=== PATIENT | female | born 1940 | race Caucasian/White ===

== ENCOUNTER 2018-01-10 16:28 | Observation (INO) | payer OTHER ==
[2018-01-10] MEDS ORDERED: AMIODARONE HCL 150 MG/3 ML VIAL ONE ×2 (16:36→16:40)
[2018-01-10] MEDS ORDERED: AMIODARONE HCL 100 ML IV ONE ×2 (16:42)
[2018-01-10] MEDS ORDERED: fentaNYL 100 MCG/2 ML INJ ONE (16:42)
[2018-01-10] MEDS ORDERED: IOPAMIDOL (ISOVUE-370) 150 ML BTL IV ONE (16:42)
[2018-01-10] MEDS ORDERED: MIDAZOLAM 2 MG/2 ML VIAL ONE (16:42)
[2018-01-10] MEDS ORDERED: LIDOCAINE 1% 300 MG/30 ML SDV ONE (16:42)
[2018-01-10] MEDS ORDERED: AMIODARONE HCL 150 MG/3 ML VIAL IV ONE ×2 (16:44→16:48)
[2018-01-10] MEDS ORDERED: MAGNESIUM SULF 2 GM/WATER 50 ML BAG IV ONE (16:46)
[2018-01-10] MEDS ORDERED: MAGNESIUM SULF 2 GM/WATER 50 ML IV ONE (16:51)
--- NOTE | 2018-01-10 16:55 | EDPHY ---
H & P Stated Complaint: cp esophagea; pain/lightheaded Time Seen by Provider: 01/10/18 16:47 HPI/ROS: CHIEF COMPLAINT: Chest pain and lightheadedness HISTORY OF PRESENT ILLNESS: Patient is a 77-year-old female who comes to the emergency department complaining of lightheadedness. She has had the symptoms off and on for the last couple of months. Today she had a Holter monitor placed by her primary. When she got home she began having more frequent episodes of lightheadedness. Her states that this has happened 5 times today. She also began to have mild chest pain. He brought her here to the ER and when she was hooked up on the monitor she was in a stable V-tach. Her blood pressure at triage was low but in the room with several measurements that is been about 130/80. She is mentating well, laughing and joking. No shortness of breath. No diaphoresis. No nausea vomiting. She reports having a cardiac catheterization 4 years ago for similar complaints and at that time was told her coronary arteries were clean. Severity: Severe Modifying factors: None REVIEW OF SYSTEMS: Constitutional: denies: chills, fever, recent illness, recent injury EENTM: denies: blurred vision, double vision, nose congestion Respiratory: denies: cough, shortness of breath Cardiac: See HPI Gastrointestinal/Abdominal: denies: abdominal pain, diarrhea, nausea, vomiting, blood streaked stools Genitourinary: denies: dysuria, frequency, hematuria, pain Musculoskeletal: denies: joint pain, muscle pain Skin: denies: lesions, rash, jaundice, bruising Neurological: denies: headache, numbness, paresthesia, tingling, dizziness, weakness Hematologic/Lymphatic: denies: blood clots, easy bleeding, easy bruising Immunologic/allergic: denies: HIV/AIDS, transplant 10 systems reviewed and negative except as noted EXAM: GENERAL: Slightly pale, mentating, lying flat HEAD: Atraumatic, normocephalic. EYES: Pupils equal round and reactive to light, extraocular movements intact, sclera anicteric, conjunctiva are normal. ENT: TMs normal, nares patent, oropharynx clear without exudates. Moist mucous membranes. NECK: Normal range of motion, supple without lymphadenopathy or JVD. LUNGS: Breath sounds clear to auscultation bilaterally and equal. No wheezes rales or rhonchi. HEART: Tachycardic, irregular ABDOMEN: Soft, nontender, normoactive bowel sounds. No guarding, no rebound. No masses appreciated. BACK: No CVA tenderness, no spinal tenderness, step-offs or deformities EXTREMITIES: Normal range of motion, no pitting or edema. No clubbing or cyanosis. NEUROLOGICAL: Cranial nerves II through XII grossly intact. Normal speech, normal gait. 5/5 strength, normal movement in all extremities, normal sensation , normal reflexes PSYCH: Normal mood, normal affect. SKIN: Warm, dry, normal turgor, no visible rashes or lesions. Source: Patient Exam Limitations: No limitations - Personal History Current Tetanus Diphtheria and Acellular Pertussis (TDAP): Yes - Medical/Surgical History Hx Asthma: No Hx Chronic Respiratory Disease: No Hx Diabetes: No Hx Cardiac Disease: Yes Hx Renal Disease: No Hx Cirrhosis: No Hx Alcoholism: No Hx HIV/AIDS: No Hx Splenectomy or Spleen Trauma: No Other PMH: SD - Social History Smoking Status: Never smoked Constitutional: Initial Vital Signs Temperature (C) 37 C 01/10/18 16:35 Heart Rate 124 H 01/10/18 16:35 Respiratory Rate 20 01/10/18 16:35 Blood Pressure 84/60 L 01/10/18 16:35 O2 Sat (%) 93 01/10/18 16:35 O2 Delivery Mode Nasal Cannula O2 (L/minute) 2 Allergies/Adverse Reactions: No Known Allergies Allergy (Unverified 01/10/18 16:35) Home Medications: Medication Instructions Recorded Metoprolol Succinate 01/10/18 Medical Decision Making - Diagnostics EKG Interpretation: An EKG obtained and was read and documented in trace view. Please see trace view for full reading and report. V-tach A EKG obtained and was read and documented in trace view. Please see trace view for full reading and report. Atrial fibrillation Imaging Results: Imaging Impressions Chest X-Ray 01/10/18 17:07 Impression: 1. Borderline cardiomegaly. ED Course/Re-evaluation: A cardiac alert was called. Patient was given [address] Fonseca arrived very quickly and Dr. Velázquez and Dr. Vargas as well. Patient was then given magnesium. As the magnesium was infusing she seemed to convert to primarily atrial fibrillation. No ST elevation changes at this time. 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 5:05 p.m. the patient has essentially stayed in a stable atrial fibrillation rhythm with occasional aberrancy. We will keep her on the amiodarone drip and plan for JACKY and cardioversion tomorrow with Dr. Velázquez. They are requesting admission the hospital service. Differential Diagnosis: Partial list of the Differential diagnosis considered include but were not limited to; stable V-tach, atrial fibrillation, AFib with aberrancy V-fib, acute coronary disease and although unlikely based on the history and physical exam, I also considered intracranial hemorrhage, infection. - Data Points Laboratory Results: Laboratory Results 01/10/18 16:40 01/10/18 16:40 01/10/18 01/10/18 01/10/18 16:42 16:40 16:40 WBC RBC Hgb POC Hgb 14.3 gm/dL gm/dL (12.6-16.3) Hct POC Hct 42 % % (38-47) MCV MCH MCHC RDW Plt Count MPV Neut % (Auto) Lymph % (Auto) [place] % (Auto) Eos % (Auto) Baso % (Auto) Nucleat RBC Rel Count Absolute Neuts (auto) Absolute Lymphs (auto) Absolute Monos (auto) Absolute Eos (auto) Absolute Basos (auto) Absolute Nucleated RBC Immature Gran % Immature Gran # PT 13.5 SEC SEC (12.0-15.0) INR 1.01 (0.83-1.16) APTT 27.2 SEC SEC (23.0-38.0) POC Sodium 144 mEq/L mEq/L (135-145) Sodium POC Potassium 3.8 mEq/L mEq/L (3.3-5.0) Potassium POC Chloride 108 mEq/L mEq/L (97-110) Chloride Carbon Dioxide Anion Gap POC BUN 21 mg/dL mg/dL (7-23) BUN Creatinine POC Creatinine 0.9 mg/dL mg/dL (0.6-1.0) Estimated GFR Glucose POC Glucose 147 mg/dL H mg/dL (70-100) Calcium Creatine Kinase 71 IU/L IU/L (0-156) CK-MB (CK-2) Fraction Pending POC Troponin I 0901/10/18 01/10/18 16:40 16:40 16:40 WBC 8.70 10^3/uL 10^3/uL (3.80-9.50) RBC 4.76 10^6/uL 10^6/uL (4.18-5.33) Hgb 14.3 g/dL g/dL (12.6-16.3) POC Hgb Hct 42.9 % % (38.0-47.0) POC Hct MCV 90.1 fL fL (81.5-99.8) MCH 30.0 pg pg (27.9-34.1) MCHC 33.3 g/dL g/dL (32.4-36.7) RDW 13.2 % % (11.5-15.2) Plt Count 264 10^3/uL 10^3/uL (150-400) MPV 10.2 fL fL (8.7-11.7) Neut % (Auto) 51.4 % % (39.3-74.2) Lymph % (Auto) 36.2 % % (15.0-45.0) [place] % (Auto) 9.9 % % (4.5-13.0) Eos % (Auto) 1.7 % % (0.6-7.6) Baso % (Auto) 0.6 % % (0.3-1.7) Nucleat RBC Rel Count 0.0 % % (0.0-0.2) Absolute Neuts (auto) 4.47 10^3/uL 10^3/uL (1.70-6.50) Absolute Lymphs (auto) 3.15 10^3/uL H 10^3/uL (1.00-3.00) Absolute Monos (auto) 0.86 10^3/uL H 10^3/uL (0.30-0.80) Absolute Eos (auto) 0.15 10^3/uL 10^3/uL (0.03-0.40) Absolute Basos (auto) 0.05 10^3/uL 10^3/uL (0.02-0.10) Absolute Nucleated RBC 0.00 10^3/uL 10^3/uL (0-0.01) Immature Gran % 0.2 % % (0.0-1.1) Immature Gran # 0.02 10^3/uL 10^3/uL (0.00-0.10) PT INR APTT POC Sodium Sodium 140 mEq/L mEq/L (135-145) POC Potassium Potassium 4.0 mEq/L mEq/L (3.3-5.0) POC Chloride Chloride 108 mEq/L mEq/L (97-110) Carbon Dioxide 20 mEq/l L mEq/l (22-31) Anion Gap 12 mEq/L mEq/L (8-16) POC BUN BUN 21 mg/dL mg/dL (7-23) Creatinine 0.9 mg/dL mg/dL (0.6-1.0) POC Creatinine Estimated GFR 60 Glucose 144 mg/dL H mg/dL (70-100) POC Glucose Calcium 10.1 mg/dL mg/dL (8.5-10.4) Creatine Kinase CK-MB (CK-2) Fraction POC Troponin I 0.01 ng/mL ng/mL (0.00-0.08) Medications Given: Amiodarone HCl (Amiodarone Hcl) 200 mls @ 33.333 mls/hr IV ONCE ONE PRN Reason: Protocol Stop: 01/10/18 22:59 Last Admin: 01/10/18 16:50 Dose: 200 mls Discontinued Medications Amiodarone HCl (Amiodarone Hcl) 150 mg IV EDNOW ONE Stop: 01/10/18 16:45 Last Admin: 01/10/18 16:49 Dose: 150 mg Amiodarone HCl (Amiodarone Hcl) 150 mg IV EDNOW ONE Stop: 01/10/18 16:49 Last Admin: 01/10/18 16:49 Dose: 150 mg Amiodarone HCl (Amiodarone Hcl) 100 mls @ 600 mls/hr IV ONCE ONE Stop: 01/10/18 16:51 Last Admin: 01/10/18 17:07 Dose: Not Given Amiodarone HCl (Amiodarone Hcl) 100 mls @ 600 mls/hr IV ONCE ONE Stop: 01/10/18 16:51 Last Admin: 01/10/18 17:08 Dose: 100 mls Magnesium Sulfate (Magnesium Sulf 2 Gm (Premix)) 50 mls @ 50 mls/hr IV EDNOW ONE Stop: 01/10/18 17:50 Last Admin: 01/10/18 16:52 Dose: 50 mls Point of Care Test Results: Chemistry 01/10/18 01/10/18 16:42 16:40 POC Sodium 144 mEq/L mEq/L (135-145) POC Potassium 3.8 mEq/L mEq/L (3.3-5.0) POC Chloride 108 mEq/L mEq/L (97-110) POC BUN 21 mg/dL mg/dL (7-23) POC Creatinine 0.9 mg/dL mg/dL (0.6-1.0) POC Glucose 147 mg/dL H mg/dL (70-100) POC Troponin I 0.01 ng/mL ng/mL (0.00-0.08) ISTAT H&H 01/10/18 16:42 POC Hgb 14.3 gm/dL gm/dL (12.6-16.3) POC Hct 42 % % (38-47) Departure - [facility] Clinical Impression: Atrial fibrillation with aberrancy Condition: Fair
[2018-01-10 16:58] LABS: PLATELET COUNT 264 10^3/uL (150-400)
[2018-01-10] MEDS ORDERED: AMIODARONE A.FIB-6HR INFSN (ORDER 2/3) PREMIX IV ONE (17:00)
[2018-01-10 17:48] LABS: INR 1.01 (0.83-1.16); PROTIME(PATIENT) 13.5 SEC (12.0-15.0)
[2018-01-10 17:51] LABS: CREATINE KINASE 71 IU/L (0-156)
[2018-01-10] MEDS ORDERED: ENOXAPARIN 80 MG/0.8 ML SYR SC SCH (18:00)
[2018-01-10] MEDS: ENOXAPARIN 80 MG/0.8 ML SYR SC SCH (18:17)
--- NOTE | 2018-01-10 18:43 | CPEKG ---
Test Reason : OPEN Blood Pressure : / mmHG Vent. Rate : 130 BPM Atrial Rate : 140 BPM P-R Int : 136 ms QRS Dur : 107 ms QT Int : 312 ms P-R-T Axes : 000 -61 062 degrees QTc Int : 459 ms Atrial fibrillation Paired ventricular premature complexes Left anterior fascicular block Confirmed by Herman Morillo ([id number]) on 01/10/2018 6:43:19 PM Referred By: Confirmed By:Herman Morillo
--- NOTE | 2018-01-10 18:43 | CPEKG ---
Test Reason : OPEN Blood Pressure : / mmHG Vent. Rate : 241 BPM Atrial Rate : 242 BPM P-R Int : 096 ms QRS Dur : 135 ms QT Int : 251 ms P-R-T Axes : 110 -71 118 degrees QTc Int : 503 ms Wide-QRS tachycardia Left bundle branch block Confirmed by Herman Morillo ([id number]) on 01/10/2018 6:43:03 PM Referred By: Confirmed By:Herman Morillo
--- NOTE | 2018-01-10 18:43 | CPEKG ---
Test Reason : OPEN Blood Pressure : / mmHG Vent. Rate : 089 BPM Atrial Rate : 089 BPM P-R Int : 155 ms QRS Dur : 123 ms QT Int : 402 ms P-R-T Axes : 065 -61 073 degrees QTc Int : 490 ms Sinus rhythm Nonspecific IVCD with LAD Probable anterolateral infarct, old Confirmed by Herman Morillo ([id number]) on 01/10/2018 6:43:24 PM Referred By: Confirmed By:Herman Morillo
--- NOTE | 2018-01-10 18:43 | CPEKG ---
Test Reason : OPEN Blood Pressure : / mmHG Vent. Rate : 107 BPM Atrial Rate : 000 BPM P-R Int : 160 ms QRS Dur : 113 ms QT Int : 382 ms P-R-T Axes : 000 -55 042 degrees QTc Int : 510 ms Atrial fibrillation Left anterior fascicular block Low voltage, extremity leads Prolonged QT interval Confirmed by Herman Morillo ([id number]) on 01/10/2018 6:43:14 PM Referred By: Confirmed By:Herman Morillo
--- NOTE | 2018-01-10 19:16 | GHP ---
DATE OF ADMISSION: 01/10/2018 CHIEF COMPLAINT: Lightheadedness and feeling like she was going to pass out. HISTORY OF PRESENT ILLNESS: This is a 77-year-old female with history of coronary artery disease, wh o was seen at [facility] on Tuesday, and started on a heart monitor after she had bouts of lightheadedness , and palpitations over the weekend. Today, the patient got home from shopping where she became extremely lightheaded, and developed pain in her throat. She also recalls having some palpitations. Upon arrival to the ED, she was found to be tachycardic with a ventricular rate of 241, which appeared to be ventricular tachycardia. The pat [place] was subsequently seen by Cardiology, who started her on amiodarone, at which time she converted to atrial fibrillation. During the time of my exam, the patient denies any chest pain or shortness of breath. She is now in normal sinus rhythm, and states that she feels much better. PAST MEDICAL HISTORY: Coronary artery disease, status post coronary catheterization 4 years ago. PAST SURGICAL HISTORY: 1. Basal cell excision of the nose. 2. Tonsillectomy. 3. Hysterectomy. HOME MEDICATIONS: Reviewed. Refer to [email or web address] for details. ALLERGIES: No known drug allergies. SOCIAL HISTORY: She is . She denies any tobacco or illicit drug use. She drinks 1 to 2 glas ses of wine per night. FAMILY HISTORY: Significant for heart disease in her mother and grandmother. REVIEW OF SYSTEMS: Comprehensive 10-point review of systems was done, and is negative except for as mentioned in the HPI. PHYSICAL EXAM: VITAL SIGNS: Blood pressure 117/60, pulse of 83, respiratory rate 24, O2 saturation 92% on room air. Temperature afebrile. GENERAL: No acute distress. HEAD: Normocephalic, atraumat ic. Eyes are PERRLA. Sclerae anicteric. Mouth: Moist mucous membranes. NECK: Supple. No lympha denopathy. CARDIOVASCULAR: S1, S2. No murmurs, rubs, clicks, gallops. No JVD. No lower extremity edema. PULMONARY: Lungs are clear. No wheezes, rales, or rhonchi. ABDOMEN: Soft, nontender, nondistended . No guarding or rebound tenderness. Normoactive bowel sounds. EXTREMITIES: No clubbing or cyanos is. NEURO: Cranial nerves 2 through 12 grossly intact. No focal motor or sensory deficits. SKIN: Clear without rashes. DIAGNOSTICS: EKG on initial presentation, done at 4:37 p.m. was reviewed: Wide-complex tachycardia, rate 241 beats per minute. EKG done at 5:16 p.m. was reviewed: Showing sinus rhythm, 89 beats per minute. No acute ischemic changes. Chest x-ray, which I visualized and personally interpreted, show s mild cardiomegaly with mild pulmonary vascular prominence. WBC is 8.7, hemoglobin 14.3, hematocrit 42.9, platelets 264. Initial troponin was negative. Sodium 140, potassium 4, chloride 108, CO2 20, BUN 21, creatinine 0.9, glucose 144. ASSESSMENT/PLAN: This is a 77-year-old female with known coronary disease, per patient report, who p resented with: 1. Wide-complex tachycardia, status post 2 doses of amiodarone, and now on amiodarone drip. 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 Low molecular weight heparin will be continued. I will place her n.p.o. overnight in case she requires a JACKY and cardioversion tomorrow. Will check a TSH and magnesium level. Will also repeat a troponin given her throat pain, in the setting of known coronary disease. The patient requests to be full code status. /[id number]/MODL
--- NOTE | 2018-01-10 20:59 | PDCARCONS ---
Cardiology Consult Reason for Consult: Wide complex tachycardia Chief Complaint: Palpitations, dizziness, throat pain Requesting Physician: Dr. Morillo, Dr. Fonseca History of Present Illness: Came to ED with sx of presyncope. WCT noted, initially cardiac alert called. Dr. Fonseca briefly saw patient and called me to consult given WCT. Reviewed ECG, patient HD stable and without pain despite HR 240 bpm. Given IV amiodarone, rhythm initially stabilized to narrow complex rhythm, irregular c.w. atrial fibrillation, later to 2:1 AFL and then to sinus rhythm. ECG in AFIB and sinus rhythm without STT changes History Information - Allergies/Home Medication List Allergies/Adverse Reactions: No Known Allergies Allergy (Verified 01/10/18 18:15) Home Medications: Atorvastatin Calcium [Lipitor 40 mg (*)] 40 mg PO HS 01/10/18 [Last Taken ] Citalopram Hydrobromide [celeXA 10 MG] 10 mg PO HS 01/10/18 [Last Taken 01/09/18 ] Metoprolol Succinate Xr [Toprol Xl 25 mg (*)] 25 mg PO HS 01/10/18 [Last Taken 01/09/18] Ranitidine HCl 300 mg PO HS 01/10/18 [Last Taken 01/09/18] Past Medical History: - Social History Smoking Status: Never smoked Physical Exam Physical Exam: Temp Pulse Resp BP Pulse Ox 36.8 C 83 24 H 117/60 92 01/10/18 17:57 01/10/18 18:22 01/10/18 18:22 01/10/18 18:22 01/10/18 18:22 Constitutional: no apparent distress, appears nourished, not in pain Eyes: PERRL, EOMI Ears, Nose, Mouth, Throat: moist mucous membranes, hearing normal Cardiovascular: regular rate and rhythym, systolic murmur Respiratory: no respiratory distress, no rales or rhonchi Gastrointestinal: normoactive bowel sounds, soft, non-tender abdomen Genitourinary: no bladder fullness Skin: warm, normal color Neurologic: AAOx3 Psychiatric: interacting appropriately, not anxious, not encephalopathic, thought process linear Lab and Imaging 01/10/18 16:40 01/10/18 16:40 WBC 8.70 10^3/uL (3.80-9.50) 01/10/18 16:40 RBC 4.76 10^6/uL (4.18-5.33) 01/10/18 16:40 Hgb 14.3 g/dL (12.6-16.3) 01/10/18 16:40 POC Hgb 14.3 gm/dL (12.6-16.3) 01/10/18 16:42 Hct 42.9 % (38.0-47.0) 01/10/18 16:40 POC Hct 42 % (38-47) 01/10/18 16:42 MCV 90.1 fL (81.5-99.8) 01/10/18 16:40 MCH 30.0 pg (27.9-34.1) 01/10/18 16:40 MCHC 33.3 g/dL (32.4-36.7) 01/10/18 16:40 RDW 13.2 % (11.5-15.2) 01/10/18 16:40 Plt Count 264 10^3/uL (150-400) 01/10/18 16:40 MPV 10.2 fL (8.7-11.7) 01/10/18 16:40 Neut % (Auto) 51.4 % (39.3-74.2) 01/10/18 16:40 Lymph % (Auto) 36.2 % (15.0-45.0) 01/10/18 16:40 [place] % (Auto) 9.9 % (4.5-13.0) 01/10/18 16:40 Eos % (Auto) 1.7 % (0.6-7.6) 01/10/18 16:40 Baso % (Auto) 0.6 % (0.3-1.7) 01/10/18 16:40 Nucleat RBC Rel Count 0.0 % (0.0-0.2) 01/10/18 16:40 Absolute Neuts (auto) 4.47 10^3/uL (1.70-6.50) 01/10/18 16:40 Absolute Lymphs (auto) 3.15 10^3/uL (1.00-3.00) H 01/10/18 16:40 Absolute Monos (auto) 0.86 10^3/uL (0.30-0.80) H 01/10/18 16:40 Absolute Eos (auto) 0.15 10^3/uL (0.03-0.40) 01/10/18 16:40 Absolute Basos (auto) 0.05 10^3/uL (0.02-0.10) 01/10/18 16:40 Absolute Nucleated RBC 0.00 10^3/uL (0-0.01) 01/10/18 16:40 Immature Gran % 0.2 % (0.0-1.1) 01/10/18 16:40 Immature Gran # 0.02 10^3/uL (0.00-0.10) 01/10/18 16:40 PT 13.5 SEC (12.0-15.0) 01/10/18 16:40 INR 1.01 (0.83-1.16) 01/10/18 16:40 APTT 27.2 SEC (23.0-38.0) 01/10/18 16:40 POC Sodium 144 mEq/L (135-145) 01/10/18 16:42 Sodium 140 mEq/L (135-145) 01/10/18 16:40 POC Potassium 3.8 mEq/L (3.3-5.0) 01/10/18 16:42 Potassium 4.0 mEq/L (3.3-5.0) 01/10/18 16:40 POC Chloride 108 mEq/L (97-110) 01/10/18 16:42 Chloride 108 mEq/L (97-110) 01/10/18 16:40 Carbon Dioxide 20 mEq/l (22-31) L 01/10/18 16:40 Anion Gap 12 mEq/L (8-16) 01/10/18 16:40 POC BUN 21 mg/dL (7-23) 01/10/18 16:42 BUN 21 mg/dL (7-23) 01/10/18 16:40 Creatinine 0.9 mg/dL (0.6-1.0) 01/10/18 16:40 POC Creatinine 0.9 mg/dL (0.6-1.0) 01/10/18 16:42 Estimated GFR 60 01/10/18 16:40 Glucose 144 mg/dL (70-100) H 09/11/18 16:40 POC Glucose 147 mg/dL (70-100) H 01/10/18 16:42 Calcium 10.1 mg/dL (8.5-10.4) 01/10/18 16:40 Magnesium 5.3 mg/dL (1.6-2.3) H* 01/10/18 19:45 Creatine Kinase 71 IU/L (0-156) 01/10/18 16:40 CK-MB (CK-2) Fraction 1.02 ng/mL (0.00-4.55) 01/10/18 16:40 POC Troponin I 0.01 ng/mL (0.00-0.08) 01/10/18 16:40 TSH 2.540 uIU/mL (0.465-4.680) 01/10/18 19:45 Free T4 0.92 ng/dL (0.59-2.19) 01/10/18 19:45 EKG additional interpertation: see a/p Telemetry: see hpi Echocardiogram: nl ef, no wma, mod mr, mod tr A/P Assessment: 1. Wide complex tachycardia 2. Atrial fibrillation 3. HTN 4. HLD Plan: Spent 90 min with patient in ED >50% in critical care time and counseling and d.w. other consultants. Also d.w. son who is MD by phone. and 2 children present for this conversation. ECG on presentation is c.w. AFL with 1:1 AV conduction rate 243 bpm, LBBB aberrancy, subsequently AFIB and then 2:1 AV conduction with AFL. Converted to sinus. Recommend: 1. Atrial flutter - should undergo ablation to prevent recurrence given presyncope. At that time can decide whether to treat AFIB with ablation or with drugs. Lovenox tonight. Given CHADSVASC = 3, lifelong OAC with Eliquis is recommended. 2. Throat pain - similar presentation 4y ago at [place], told cath was normal. Report requested. Was told likely coronary spasm but could have been tachycardia. Check cardiac markers. Dr. Fonseca to see tomorrow to decide if cor angio necessary.
[2018-01-10] MEDS ORDERED: FAMOTIDINE 20 MG TAB PO SCH (21:00)
[2018-01-10] MEDS ORDERED: CITALOPRAM 20 MG TAB PO SCH (21:00)
[2018-01-10] MEDS ORDERED: METOPROLOL SUCCINATE XR 25 MG TAB PO SCH ×2 (21:00→21:30)
[2018-01-10] MEDS ORDERED: ATORVASTATIN CALCIUM 40 MG TAB PO SCH (21:00)
[2018-01-10] MEDS ORDERED: AMIODARONE HCL 540 MG in D5W 300 ML IV ONE (23:05)
[2018-01-11] MEDS: ENOXAPARIN 80 MG/0.8 ML SYR SC SCH (06:06)
[2018-01-11 06:37] LABS: PLATELET COUNT 191 10^3/uL (150-400)
--- NOTE | 2018-01-11 07:33 | PDCARPN ---
Cardiology Progress Note Chief Complaint: palpitations Assessment/Plan: Assessment: AF with aberrancy atrial flutter 1:1 Plan: Patient has been in NSR overnight d/c amio gtt start amio 400 mg po qd start eliquis 5 mg po bid stop lovenox I have explained to patient that a f/u within the week is needed as Dr. Velázquez feels an ablation may be of value give her presentation. Patient sees [facility] and will either f/u with them or switch to us. Will obtain limited echo today now that patient is in NSR. If echo appears stable, OK from CV standpoint to d/c home. 01/11/18 07:25 Subjective: feels well Reviewed/Discussed With: multidisciplinary team Time Spent with Patient: greater than 25 minutes Time Spent with Patient: Greater than 25 minutes spent on this patients care, greater than 50% of time spent counseling, educating, and coordinating care regarding the above mentioned plan. Objective: Vital Signs (8 Hrs) Temp Pulse Resp BP Pulse Ox 01/11/18 04:00 36.7 C 71 19 120/67 97 01/11/18 00:00 36.6 C 77 16 124/67 H 91 L Intake/Output (24 Hrs) 01/10/18 01/11/18 01/12/18 05:59 05:59 05:59 Intake Total 1397 Output Total 200 Balance 1197 Intake: IV Infused (ml) 1397 Amiodarone HCl 200 ml @ 187 33.333 mls/hr IV ONCE ONE Rx#:[id number] Amiodarone HCl 540 mg In 110 D5w 300 ml @ 16.667 mls/ hr IV ONCE ONE Rx#: [id number] Output: Urine (ml) 200 Bedside Commode 200 Toilet 0 Other: Weight 77.111 kg Number of Voids 0 Bedside Commode 1 Toilet 1 Result Diagrams: 01/11/18 06:15 01/11/18 06:15 Cardiac Labs: Cardiac Lab Results (72 Hrs) 01/11/18 04:32 Troponin I 0.015 - Physical Exam Constitutional: healthy appearing Eyes: PERRL Ears, Nose, Mouth, Throat: moist mucous membranes Cardiovascular: regular rate and rhythm Peripheral Pulses: 1+: femoral (R), femoral (L) Respiratory: clear to auscultate bilat Gastrointestinal: normoactive bowel sounds Genitourinary: no suprapubic tenderness Skin: no rashes Musculoskeletal: no muscular tenderness Neurologic: AAOx3 Psychiatric: cooperative Lymph, Heme, Immunologic: no lymphadenopathy ICD10 Worksheet Patient Problems: Problems Problem Status Onset Atrial fibrillation and flutter Acute - ICD10 Problem Qualifiers (1) Atrial fibrillation and flutter
[2018-01-11] MEDS ORDERED: APIXABAN 5 MG TAB PO SCH (09:00)
[2018-01-11] MEDS ORDERED: METOPROLOL TARTRATE 25 MG TAB PO SCH (09:00)
[2018-01-11] MEDS ORDERED: AMIODARONE HCL 200 MG TAB PO SCH (09:00)
[2018-01-11 12:07] VITALS: BP 124/60
--- NOTE | 2018-01-11 12:16 | PDDCSUM ---
Discharge Summary Discharge Summary: Date of Admission: 01/10/2018 Date of Discharge: 01/11/2018 Consultants: cardiology (Jose Velázquez) Procedures/Studies: TTE Discharge Diagnoses: 1. Wide complex tachycardia 2. Atrial flutter and fibrillation with LBBB aberrancy 3. Pre-syncope 4. HTN 5. HLD 6. Depression Brief Hospital Course: 77yo F presented to ED with palpitations and presyncope found to have wide complex tachycardia with HR 240 and stable BP. ECG on presentation c/w atrial flutter with 1:1 AV conduction with LBBB aberrancy. Subsequently developed atrial fibrillation and then atrial flutter with 2:1 AV conduction. She converted to sinus rhythm after initiation of amiodarone gtt. There were no signs of acute ischemia on ECG and troponin negative. It is unclear what acutely precipitated this episode. It was not felt that coronary angiography was necessary (reportedly had normal cath ~5 years ago). She was transitioned to PO amiodarone at 400mg x1 week, then 200mg daily thereafter. We have discontinued her citalopram due to interactions with amiodarone; she does not need to taper this (she is on low dose) but she should consult with her PCP re: starting a different anti-depressant. Additionally, she has a [id number] and was started on anticoagulation with apixaban. She does not have a history of bleeding. She was instructed to follow up with zanjero (either Dr Velázquez or EP at [facility] where she has insurance) in 1 week to discuss whether to treat with medications or ablation. Medications: Please refer to EMR for complete list. Changes this admission include addition of amiodarone and apixaban, discontinuation of citalopram. Follow Up Plan: 1. Amiodarone dosing as above 2. EP clinic visit within [address] Velázquez or at [facility] 3. Follow up formal TTE read (preliminary read indicates no wall motion abnormality, moderate MR, moderate TR, normal LVEF) 4. Discuss anti-depressant medication with PCP 5. Monitor for toxicity from amiodarone if on long-term (LFTs mildly elevated this admission, TSH wnl, no PFTs on file) Physical Exam: Vitals and telemetry reviewed. HR 60-80s and sinus overnight and this morning. Alert and oriented. RRR on cardiac exam with 2/6 systolic murmur at apex without radiation. Lungs clear. Abdomen soft. No JVD or leg edema.
== END 2018-01-11 13:00 | disposition home or self-care (01) ==
LOC: F2N 17:44
PROVIDERS: ADMIT Family Medicine; ATTEND Family Medicine
PROC: 3E053RZ Introduction of Antiarrhythmic into Peripheral Artery, Percutaneous Approach (ICD-10-PCS; principal; 2018-01-10)
DX: I48.91 Unspecified atrial fibrillation (principal); I48.92 Unspecified atrial flutter; I10 Essential (primary) hypertension; I25.10 Atherosclerotic heart disease of native coronary artery without angina pectoris; E78.5 Hyperlipidemia, unspecified; F32.9 Major depressive disorder, single episode, unspecified
CPT/HCPCS: 71045; 93005; 96372; 96374; 96376; 99285; G0378; J0282; J1644; J1650; J3475; Q9967; 82435-PO; 82565-PO; 82947-PO; 84132-PO; 84295-PO; 84484-PO; 84520-PO; 85014-PO; J2250; J3010